=== PATIENT | female | born 2005 | race Caucasian/White ===

== ENCOUNTER 2024-06-29 17:08 | Observation (INO) | payer MEDICAID ==
[2024-06-29 18:32] LABS: ALBUMIN 3.8 g/dL (3.5-5.0); BILIRUBIN,TOTAL 0.6 mg/dL (0.2-1.3); Calcium 9.3 mg/dL (8.4-10.2); Creatinine 1 0.44 mg/dL (0.52-1.04); EST GLOMERULAR FILTRATION RATE 141.9 ML/MIN; Potassium 3.4 mmol/L (3.5-5.1); Total Protein 6.7 g/dL (6.3-8.2)
[2024-06-29] MEDS ORDERED: Lactated Ringers 1,000 ML IV ONE ×2 (19:14→21:13)
[2024-06-29] MEDS: Lactated Ringers 1,000 ML IV SCH ×2 (20:04→21:14)
[2024-06-29 21:37] LABS: ALBUMIN 3.3 g/dL (3.5-5.0); ANION GAP 14.5 MEQ/L (5-15); BILIRUBIN,TOTAL 0.6 mg/dL (0.2-1.3); Calcium 8.7 mg/dL (8.4-10.2); Creatinine 1 0.47 mg/dL (0.52-1.04); EST GLOMERULAR FILTRATION RATE 139.7 ML/MIN; Potassium 3.4 mmol/L (3.5-5.1); Total Protein 6.1 g/dL (6.3-8.2)
[2024-06-29] MEDS ORDERED: Klor Con ONE (22:01)
[2024-06-29] MEDS: Klor Con PO ONE (22:03)
[2024-06-29 22:16] LABS: Appearance Cloudy (Clear); Bacteria Moderate /HPF (None Seen); Bilirubin Negative (Negative); Blood NHT (Negative); Epithelial Cells Moderate /HPF (None Seen); Glucose, Urine Negative (Negative); Hyaline Casts NONE SEEN /LPF (0-2); Ketones 15 (Negative); Leukocyte Esterase Trace (Negative); Nitrite Negative (Negative); Ph 6.5 (4.6-8.0); Protein,Urine Dip Negative (Negative); RBC 0-2 /HPF (0-5); Specific Gravity 1.015 (1.005-1.030); WBC 21-50 /HPF (0-5)
[2024-06-29 22:17] VITALS: BP 122/77; PULSE 111; RESP 18; TEMP 98.4; O2SAT 100
[2024-06-29 22:28] LABS: Amphetamine,Urine NEGATIVE (NEGATIVE); Barbiturate,Urine NEGATIVE (NEGATIVE); Benzodiazepine,Urine NEGATIVE (NEGATIVE); Cocaine,Urine NEGATIVE (NEGATIVE); Methadone,Urine NEGATIVE (NEGATIVE); Opiate,Urine NEGATIVE (NEGATIVE); PCP,Urine NEGATIVE (NEGATIVE); THC,Urine NEGATIVE (NEGATIVE)
== END 2024-06-29 22:15 | disposition left against medical advice (07) ==
LOC: OB.NST 17:08 → OB 17:41
PROVIDERS: ADMIT Obstetrics & Gynecology; ATTEND Obstetrics & Gynecology
DX: Z34.02 Encounter for supervision of normal first pregnancy, second trimester (principal); Z3A.22 22 weeks gestation of pregnancy; Z59.87 Material hardship due to limited financial resources, not elsewhere classified
CPT/HCPCS: 36415; 80053; 80307; 81001; 82947; 87086; G0378; A9270-GY